=== PATIENT | female | born 1950 ===

== ENCOUNTER 2018-07-18 08:00 | Day surgery (SDC) | payer OTHER ==
[~2018-07-18 08:00] MED LIST: AMITRIPTYLINE H25 MG PO; FOSAMAX70 MG PO; LEVO-T25 MCG PO; LEXAPRO20 MG PO; LORAZEPAM0.5 MG PO
[2018-07-18] MEDS ORDERED: MACROBID 100 M100 MG PO (11:08)
[2018-07-18] MEDS ORDERED: ULTRACET PO (11:09)
== END 2018-07-18 15:05 | disposition home or self-care (01) ==
LOC: CIR.AMB 08:00
DX: N81.11 Cystocele, midline (principal); N81.5 Vaginal enterocele